=== PATIENT | female | born 1970 | race African-American/Black ===

== ENCOUNTER 2020-04-27 16:08 | Emergency (ER) | payer OTHER, SELFPAY ==
--- NOTE | ~2020-04-27 | XR_ITS ---
XR chest 2V DATE: 04/27/2020 17:02 INDICATION: Mid chest pain. History of myocardial infarction. TECHNIQUE: PA and lateral views COMPARISON: None FINDINGS: Normal heart size. No hilar or mediastinal enlargement. No pulmonary infiltrate or consolid ation, pleural effusion or pulmonary vascular congestion or pneumothorax. IMPRESSION: No active cardiopulmonary disease Reviewed, dictated and finalized at location A. [employer]
[2020-04-27 16:17] VITALS: BP 182/84; PULSE 97; RESP 16; TEMP 35.8; O2SAT 100
--- NOTE | 2020-04-27 16:22 | ECG_ITS ---
Measurements Intervals Gregory Rate: 97 P: 59 ND: 159 QRS: 49 QRSD: 89 T: 65 QT: 332 QTc: 423 Interpretive Statements SINUS RHYTHM BASELINE ARTIFACT- I, II, III, AVR, AVL, V1 NORMAL ECG Electronically Signed On 04-27-2020 21:08:47 [employer] by Rick Brown D.O.
[2020-04-27 16:46] LABS: Basophils Absolute Auto 0.1 K/mm3 (0.0-0.1); Basophils Percent Auto 0.7 % (0.2-1.2); Eosinophils Absolute Auto 0.2 K/mm3 (0-0.3); Eosinophils Percent Auto 2.2 % (0-4.4); Hematocrit 34.8 % (37.0-47.0); Hemoglobin 11.5 g/dL (12.0-15.0); Immature Granulocyte Absolute 0.04 K/mm3 (0.00-0.031); Immature Granulocyte Percent A 0.5 % (0-0.5); Lymphocytes Absolute Auto 2.82 K/mm3 (0.9-3.2); Mean Corpuscular Hemoglobin 30.5 pg (26-34); Mean Corpuscular Volume 92.3 fl (80-100); Mean Platelet Volume 11.3 fl (7.4-10.4); Monocytes Absolute Auto 0.5 K/mm3 (0.1-0.6); Monocytes Percent Auto 5.5 % (2.6-8.5); Neutrophils Absolute Auto 5.2 K/mm3 (1.3-6.7); Neutrophils Percent Auto 59.1 % (45.5-73.1); Platelet Count Result 298 k/mm3 (150-375); Red Blood Count 3.77 M/mm3 (4.2-5.4); Red Cell Distribution Width 12.3 % (11.5-14.5); White Blood Count 8.8 K/mm3 (4.5-10.0)
[2020-04-27 16:55] LABS: INR 0.9; Prothrombin Time 12.5 Seconds (11.1-14.7)
[2020-04-27 17:12] LABS: Troponin I < 0.012 ng/mL (0.000-0.034)
[2020-04-27 17:17] LABS: Anion Gap 6 mmol/L (8-16); Blood Urea Nitrogen 23 mg/dL (7-17); Carbon Dioxide 31 mmol/L (22-30); Chloride 93 mmol/L (98-107); Estimated CRCL calculation 68 ml/min; Estimated Glomerular Filt Rate > 60; Glucose 541 mg/dL (65-105); Potassium 3.8 mmol/L (3.4-5.0); Sodium 130 mmol/L (137-145)
--- NOTE | 2020-04-27 19:06 | PC.NURSE ---
first call for a bed @ 190 - no answer.
--- NOTE | 2020-04-27 20:34 | PC.NURSE ---
called at 2033-no answer
== END 2020-04-27 21:13 | disposition left against medical advice (07) ==
PROVIDERS: Emergency Provider Emergency Medicine
DX: R07.9 Chest pain, unspecified (principal)
CPT/HCPCS: 36415; 71046; 80048; 84484; 85025; 85610; 85730; 93005; 99199